=== PATIENT | male | born 1995 | race Caucasian/White ===

== ENCOUNTER 2018-10-21 15:06 | Outpatient (CLI) | payer MEDICARE, MEDICAID, SELFPAY ==
[2018-10-24 17:27] LABS: Testosterone, Total 192 ng/dL (240-950)
== END 2018-10-21 15:26 ==
PROVIDERS: PCP Internal Medicine; Visit Provider Internal Medicine
DX: L65.9 Nonscarring hair loss, unspecified (principal)
CPT/HCPCS: 36415; 84403; 84443

== ENCOUNTER 2018-11-02 09:51 | Outpatient (CLI) | payer MEDICARE, MEDICAID, SELFPAY ==
[2018-11-03 09:18] LABS: FSH 1.8 mIU/ml (1.4-18.1)
[2018-11-05 15:20] LABS: Testosterone, Free 12.5 ng/dL (5.05-19.8); Testosterone, Total 328 ng/dL (240-950)
== END 2018-11-02 10:11 ==
PROVIDERS: PCP Internal Medicine; Visit Provider Internal Medicine
DX: R79.89 Other specified abnormal findings of blood chemistry (principal)
CPT/HCPCS: 36415; 84402; 84403; 83001; 83002

== ENCOUNTER 2021-04-29 15:21 | Emergency (ER) | payer MEDICARE, MEDICAID, SELFPAY ==
[2021-04-29 15:29] VITALS: BP 141/77; PULSE 86; TEMP 36.8; O2SAT 97
--- NOTE | 2021-04-29 15:40 | W.ED.GENAD ---
Discharge Plan Disposition Patient Disposition: HOME Condition: Stable Discharge Details Clinical Impression: Bilateral edema of lower extremity Primary Care Provider: Jennifer Mcfarland ED Provider: Kyaw Kline Home Meds and New Rx's Prescriptions: Continued multivitamin tablet 1 tab PO DAILY RF: 0 Discharge Instructions Instructions: Edema (ED) Additional Instructions: Laboratory values do not reveal any obvious emergent process. As we discussed, elevate your lower extremities, wear compression stockings, limit your sodium intake, and watch her overall fluid intake. Please watch for new or worsening symptoms and return to the ER for any concerns. Otherwise I recommend reaching out your primary care provider tomorrow to discuss your ongoing symptoms, ER visit, and need for outpatient reevaluation. Medical Decision Making <ROBEL Gillis - Last Filed: 04/29/21 17:02> Patient is a pleasant 25 year old male with PMH significant for depression, WPW, obesity, Asperger's, presenting with c/c of BLE edema. States that he noted significant edema when he woke yesterday. Has had episodes of swelling in the past but never to this degree. He reports that today, swelling is improved today. Denies trauma, pain, SOB, CP, rash, fevers/chills. States that the night before he had a large amount of salt. No recent medication changes. On exam, patient appears anxious but non toxic. He has small amount of non pitting BLE edema to ankles. 2+ distal pulses. Sensation intact. No rash. Calves are soft, nontender. Wells' Score for DVT zero. We discussed treatment options. Patient is very anxious. I have low suspicion, based on exam, age and history, for emergent pathology. However, will screen for nephrotic syndrome, acute heart failure with labs. At the end of my shift, care transitioned to Kyaw Kline PA-C with labs pending. <ROBEL Valenzuela - Last Filed: 04/29/21 17:55> I received care of this 25-year-old gentleman from my colleague ROBEL Bailey, please see her initial HPI and examination. Laboratory values pending. CBC unremarkable, electrolytes unremarkable, BUN 15 creatinine 1.1 GFR greater than 60. Albumin 4.4, urinalysis unremarkable. Upon reevaluation patient appears well, nontoxic, speaking in full sentences. Heart regular rate and rhythm, lungs clear to auscultation. Bilateral lower extremities, feet with minimal pedal edema. Calves are nontender without obvious swelling, erythema, warmth. Normal dorsalis pedal pulse and capillary refill bilaterally. Negative Homans' sign bilaterally. Discussed work-up with patient, discussed elevation, stockings, decreasing his sodium intake, and watching his fluid intake. Standard discharge and return precautions given. Otherwise patient will reach out to his primary care provider tomorrow to discuss his ER visit need for outpatient reevaluation. Lab Data Lab results reviewed: Yes I reviewed the patient's lab results. Labs: Laboratory Tests Range/Units 04/29/21 04/29/21 04/29/21 16:03 16:20 16:20 WBC (4.4-10.8) 10^3/uL 8.18 RBC (4.36-5.78) 10^6/uL 5.17 Hgb (13.5-17.5) g/dL 14.3 Hct (40.0-50.0) % 44.2 MCV (80-95) fL 85.5 MCH (27.0-33.0) pg 27.7 MCHC (32.0-36.0) % 32.4 RDW (11.8-14.1) % 12.9 Plt Count (130-400) 10^3/uL 311 MPV (8.0-11.0) fL 10.7 Immature Gran % 0.4 Neutrophils % 67.7 Lymphocytes % 22.7 Monocytes % 6.6 Eosinophils % 2.2 Basophils % 0.4 Nucleated RBC % % 0 Absolute Neutrophils (1.2-6.7) 10^3/uL 5.54 Absolute Lymphocytes (1.2-3.4) 10^3/uL 1.86 Absolute Monocytes (0.1-0.8) 10^3/uL 0.54 Absolute Eosinophils (0.0-0.7) 10^3/uL 0.18 Absolute Basophils (0.0-0.2) 10^3/uL 0.03 Sodium (136-145) mmol/L 140 Potassium (3.5-5.1) mmol/L 4.1 Chloride (98-107) mmol/L 103 Carbon Dioxide (21.0-32.0) mmol/L 28.4 Anion Gap (3-11) mmol/L 8.6 BUN (7-18) mg/dL 15 Creatinine (0.70-1.30) mg/dL 1.1 Estimated GFR/1.73 m2 (mL/min/1.73m2) >= 60.00 Glucose (74-106) mg/dL 111 H Calcium (8.5-10.1) mg/dL 9.2 Total Bilirubin (0.2-1.0) mg/dL 0.4 AST (15-37) U/L 22 ALT (16-63) U/L 46 Alkaline Phosphatase (46-116) U/L 117 H NT-Pro-B Natriuret Pep (<300) pg/mL 50 Total Protein (6.4-8.2) g/dL 8.2 Albumin (3.4-5.0) g/dL 4.4 Urine Color (Yellow) Yellow Urine Clarity (Clear) Clear Urine pH (5-8) 8.0 Ur Specific [place] (1.005-1.025) 1.020 Urine Protein (Negative) mg/dL Negative Urine Ketones (Negative) mg/dL Negative Urine Blood (Negative) Negative Urine Nitrite (Negative) Negative Urine Bilirubin (Negative) Negative Urine Urobilinogen (Up TO 0.2) EU/dL 0.2 Ur Leukocyte Esterase (Negative) Negative Urine Glucose (Negative) mg/dL Negative HPI <ROBEL Gillis - Last Filed: 04/29/21 17:02> General Mode of arrival: ambulatory. Date/Time Provider Initiated Documentation: 04/29/21 15:25. Limitations to Documentation: no limitations. Information obtained by: patient, RN notes reviewed and old records reviewed. History of Present Illness 25 year old M presents to the emergency department with the chief complaint of bilateral ankle swelling, described as moderate and similar to prior episodes, Quality is described as other (denies any pain), and is localized to the left, right and lower extremity. Patient reports no radiation. Patient started experiencing this day(s) (first noted yesterday AM) and it has been constant (signifcantly improved). other things that improve symptom(s), (elevation) No exacerbating factors reported . Patient notes no other symptoms.. Patient did receive the following treatments prior to arrival, none Related Data Home Medications Medication Instructions Recorded Confirmed multivitamin 1 tab PO DAILY 02/02/19 04/29/21 Allergies Allergy/AdvReac Type Severity Reaction Status Date / Time No Known Drug Allergies Allergy Verified 04/29/21 15:36 General Stated Complaint: GenMedical YENIFER: 5 Review of Systems <ROBEL Gillis - Last Filed: 04/29/21 17:02> Constitutional Constitutional: Reports as per HPI, Denies chills, Denies fever(s), Denies headache(s) and Denies weakness ENT Ears, Nose, Mouth, and Throat: Denies headache(s) Cardiovascular Cardiovascular: Reports as per HPI, Denies dyspnea and Denies dyspnea on exertion Respiratory Respiratory: Reports as per HPI, Denies dyspnea and Denies dyspnea on exertion Musculoskeletal Musculoskeletal: Reports as per HPI and Denies tingling Integumentary/Breasts Skin/Breast: Reports as per HPI, Denies rash and Denies wounds Neurologic Neurologic: Reports as per HPI, Denies headache(s), Denies tingling, Denies paresthesias and Denies weakness PFSH <ROBEL Gillis - Last Filed: 04/29/21 17:02> Medical History BMI 40.0-44.9, adult (10/08/16) Depression (12/30/11) Intentional Tylenol overdose 2014 Surgical History Recurrent major depression in partial remission Family History (Updated 04/28/19 @ 15:14 by Prachi Clarke RN) Mother Essential hypertension Asthma Diabetes Aunt Diabetes Heart disease Asthma Aunt Asthma Maternal Grandmother Heart disease Social History Smoking/Tobacco Use Status: Never Smoking risk assessment performed?: Yes Alcohol Intake: never Drug use: Never Substance use type: does not use Adopted: No Foster care: Yes (as a child) Household members: other Details: sister and mom Housing: apartment Number of Children: 0 Frequency: 1-2 times per week Do you feel safe at home: Yes Do you feel safe in your relationship?: Yes Exam <ROBEL Gillis - Last Filed: 04/29/21 17:02> Const General: cooperative, healthy appearing, comfortable, no acute distress, well developed, well groomed and anxious Nutritional Appearance: well nourished and obese Orientation: alert and awake Resp Effort & Inspection: normal respiratory effort, able to speak in complete sentences and no respiratory distress Auscultation: clear to auscultation bilaterally Cardio Rate: regular rate Rhythm: regular rhythm Heart Sounds: S1 normal and S2 normal Skin General skin exam: no rashes or lesions noted Lesions: no lesions Rashes: no rashes Trauma: no lacerations or abrasions Neuro General: patient alert and patient awake Cognition: normal cognition Speech: speech normal Gait: normal gait Motor: muscle tone normal throughout Sensory Exam: no sensory deficits noted Extrem General: full ROM, capillary refill normal, no calf tenderness, normal gait, edema (mild nonpitting edema) Laterality: bilateral and other (2+ distal pulses) Psych Appearance: grossly normal and well kempt Mental Status: mental status grossly normal Speech and Movement: speech and movement normal Course <ROBEL Gillis - Last Filed: 04/29/21 17:02> Vital Signs Vital signs: Vital Signs Temperature 36.8 C 04/29/21 15:29 Pulse 86 04/29/21 15:29 Blood Pressure 141/77 H 04/29/21 15:29 Pulse Oximetry 97 04/29/21 15:29 Temperature 36.8 C 04/29/21 15:29 Temperature Source Temporal Artery Scan 04/29/21 15:29 Pulse 86 04/29/21 15:29 Respiratory Effort Non-Labored 04/29/21 15:33 Blood Pressure 141/77 H 04/29/21 15:29 Blood Pressure Position Sitting 04/29/21 15:29 Pulse Oximetry 97 04/29/21 15:29 Oxygen Delivery Method Room Air 04/29/21 15:29 Oxygen Flow Rate 0 04/29/21 15:29 Pain Level 0 04/29/21 15:29 Sign Out <ROBEL Gillis - Last Filed: 04/29/21 17:02> Sign Out Data: Sign Out Comment: Care transitioned to Kyaw Kline PA-C with labs pending. BLE swelling. Began yesterday, improving. Last updated by Katharine Bailey PA at 04/29/21 16:11
[2021-04-29 16:10] LABS: Bilirubin Negative (Negative); Blood Negative (Negative); Clarity Clear (Clear); Glucose Negative (Negative); Ketones Negative (Negative); Leukocyte Esterase Negative (Negative); Nitrite Negative (Negative); Urobilinogen 0.2 EU/dL (Up TO 0.2)
[2021-04-29 16:33] LABS: Abs Immature Grans 0.03 10^3/uL (0.0-0.06); Absolute Basophil Count 0.03 10^3/uL (0.0-0.2); Absolute Eosinophil Count 0.18 10^3/uL (0.0-0.7); Absolute Lymphocyte Count 1.86 10^3/uL (1.2-3.4); Absolute Monocyte Count 0.54 10^3/uL (0.1-0.8); Absolute Neutrophil Count 5.54 10^3/uL (1.2-6.7); Basophils % 0.4; Eosinophils % 2.2; HCT 44.2 % (40.0-50.0); HGB 14.3 g/dL (13.5-17.5); Immature Grans % 0.4; Lymphocytes % 22.7; MCH 27.7 pg (27.0-33.0); MCHC 32.4 % (32.0-36.0); MCV 85.5 fL (80-95); MPV 10.7 fL (8.0-11.0); Monocytes % 6.6; Neutrophils % 67.7; Nucleated RBC 0 %; Platelet Count 311 10^3/uL (130-400); RBC 5.17 10^6/uL (4.36-5.78); RDW 12.9 % (11.8-14.1); RDW-SD 40.3 fL; WBC 8.18 10^3/uL (4.4-10.8)
[2021-04-29 16:57] LABS: ALT 46 U/L (16-63); AST 22 U/L (15-37); Albumin 4.4 g/dL (3.4-5.0); Alkaline Phosphatase 117 U/L (46-116); Anion Gap 8.6 mmol/L (3-11); BUN 15 mg/dL (7-18); Bilirubin, Total 0.4 mg/dL (0.2-1.0); CO2 28.4 mmol/L (21.0-32.0); CREATININE 1.1 mg/dL (0.70-1.30); Calcium 9.2 mg/dL (8.5-10.1); Chloride 103 mmol/L (98-107); Glucose 111 mg/dL (74-106); NT-proBNP 50 pg/mL (<300); Potassium 4.1 mmol/L (3.5-5.1); Sodium 140 mmol/L (136-145); Total Protein 8.2 g/dL (6.4-8.2)
[2021-04-29 18:08] VITALS: BP 113/72; PULSE 72; RESP 16; TEMP 36.4; O2SAT 99
== END 2021-04-29 18:10 | disposition home or self-care (01) ==
PROVIDERS: Physician Assistant; Emergency Provider Physician Assistant; PCP Internal Medicine
DX: R60.0 Localized edema (principal)
CPT/HCPCS: 36415; 80053; 99283; 81003; 83880; 85025

== ENCOUNTER 2021-11-02 01:21 | Outpatient (CLI) | payer MEDICARE, MEDICAID, SELFPAY ==
[2021-11-02] MEDS: Albuterol HFA 18 GM 200 PUFF INH IH (16:59)
[2021-11-02] MEDS: Inhaler, Assist Device 1 EACH MC (16:59)
== END 2021-11-02 01:22 | disposition home or self-care (01) ==
LOC: RT 01:21
PROVIDERS: PCP Internal Medicine; Visit Provider Internal Medicine
DX: R06.2 Wheezing (principal); J98.4 Other disorders of lung; E66.9 Obesity, unspecified
CPT/HCPCS: 94060; 94726; 94729

== ENCOUNTER 2023-04-08 12:43 | Outpatient (CLI) | payer MEDICARE, MEDICAID, SELFPAY ==
[2023-04-08 12:34] LABS: Abs Immature Grans 0.03 10^3/uL (0.0-0.06); Absolute Basophil Count 0.04 10^3/uL (0.0-0.2); Absolute Eosinophil Count 0.17 10^3/uL (0.0-0.7); Absolute Lymphocyte Count 2.13 10^3/uL (1.2-3.4); Absolute Monocyte Count 0.54 10^3/uL (0.1-0.8); Basophils % 0.4; Eosinophils % 1.9; HCT 43.1 % (40.0-50.0); HGB 14.1 g/dL (13.5-17.5); Immature Grans % 0.3; Lymphocytes % 23.6; MCH 27.9 pg (27.0-33.0); MCHC 32.7 % (32.0-36.0); MCV 85 fL (80-95); MPV 10.5 fL (8.0-11.0); Neutrophils % 67.8; Platelet Count 301 10^3/uL (130-400); RBC 5.06 10^6/uL (4.36-5.78); RDW 13.7 % (11.8-14.1); RDW-SD 42.5 fL; WBC 9.01 10^3/uL (4.4-10.8)
[2023-04-08 13:09] LABS: Mono Screening Negative (Negative)
[2023-05-07 09:48] LABS: Fungus Smear No Fungi Seen
== END 2023-04-08 12:44 | disposition home or self-care (01) ==
LOC: LBO 12:45
PROVIDERS: PCP Family Medicine; Visit Provider Family Medicine
DX: J06.9 Acute upper respiratory infection, unspecified (principal)
CPT/HCPCS: 36415; 87102; 87206; 85025; 86308; 87798

== ENCOUNTER → 2023-04-14 02:09 | Outpatient (CLI) | payer MEDICARE, MEDICAID, SELFPAY ==
--- NOTE | 2023-04-14 08:00 | DI.RAD_ITS ---
Exam(s) XR CHEST 2V PA LATERAL EXAM: XR CHEST 2V PA LATERAL CLINICAL HISTORY: Cough, possible mold exposure,uri,j06.9. TECHNIQUE: 2D digital imaging was performed. COMPARISON: No exams were available for comparison FINDINGS: 2 views: Heart size is normal. The mediastinum is not widened. Lungs are clear. No infiltrates nor pleural effusions. IMPRESSION: No acute pulmonary findings. DATA REPOSITORY: RADIATION DOSE DELIVERED:
== END ==
PROVIDERS: PCP Family Medicine; Visit Provider Family Medicine
DX: J06.9 Acute upper respiratory infection, unspecified (principal)
CPT/HCPCS: 71046

== ENCOUNTER 2023-06-25 19:21 | Emergency (ER) | payer MEDICARE, MEDICAID, SELFPAY ==
[2023-06-25 19:36] VITALS: BP 108/88; PULSE 91; RESP 20; TEMP 36.5; O2SAT 99
[2023-06-25] MEDS: Fluorescein STRIPS 100/BOX 1 MG (20:08)
--- NOTE | 2023-06-25 20:08 | ED.GENADUL_ITS ---
Discharge Plan Disposition Patient Disposition: Home Condition: Good Discharge Details Clinical Impression: Conjunctivitis, viral Primary Care Provider: Arnie Lovelace ED Provider: Suki Hennessy Home Meds and New Rx's Prescriptions: No Action ibuprofen 200 mg capsule 400 mg PO Q6H PRN (Reason: Headache pain) multivitamin Tablet 1 tab PO QAM calcium carbonate [Tums] 200 mg calcium (500 mg) tablet,chewable 200 mg PO TID PRN omeprazole 20 mg capsule,delayed release(DR/EC) 20 mg PO DAILY Qty: 60 0RF Discharge Instructions Instructions: Conjunctivitis (ED) Additional Instructions: Benadryl over the counter as well as ketotifen eye drops as needed for symptoms; follow the directions on the bottles. Return to the emergency department for new or worsneing symptoms including vision change, thick discharge from the eye, eye pain, or if you have any other concersn. Referrals: Arnie Lovelace DO [Primary Care Provider] - Discharge Data Discharge Date/Time-TO BE ENTERED AT DEPARTURE: 06/25/23 20:35 Medical Decision Making 27yo male presenting with left eye redness and pruritus x 3 days. History from patient and mother at bedside. No eye trauma. No history concerning for glaucoma. Vital signs reassuring, on exam is left eye is mildly injected with watery discharge, consistent with viral vs allergic conjunctivitis. Unlikely bacterial. Examined with conn lamp, no corneal abrasion. Given Benadryl here, advised Benadryl and OTC eye drops at home. Discharged home; discharge instructions including return precautions were reviewed with patient who verbalized understanding. All questions were answered and they are in full agreement with the plan. HPI General Mode of arrival: ambulatory . Date/Time Provider Initiated Documentation: 06/25/23 19:47 . Limitations to Documentation: no limitations . Information obtained by: patient and family . HPI Narrative: 27yo male presenting with left eye redness and pruritus x 3 days. History from patient and mother at bedside. He does not recall any trauma to the area. No vision changes. Symptoms have been worsening over time, get worse after he rubs his eye. Watery discharge, no thick discharge. Edwar eye pain. No history of eye problems. No URI symptoms. He is otherwise in his usual state of health. Related Data Home Medications Medication Instructions Recorded Confirmed calcium carbonate 200 mg calcium 200 mg PO TID PRN 04/08/23 06/25/23 (500 mg) chewable tablet (Tums) ibuprofen 200 mg capsule 400 mg PO Q6H PRN Headache pain 04/08/23 06/25/23 multivitamin 1 tab PO QAM 04/08/23 06/25/23 omeprazole 20 mg capsule,delayed 20 mg PO DAILY #60 caps 04/08/23 06/25/23 release Previous Rx's Medication Instructions Recorded omeprazole 20 mg capsule,delayed 20 mg PO DAILY #60 caps 04/08/23 release Allergies Allergy/AdvReac Type Severity Reaction Status Date / Time cat dander Allergy Intermediate Unverified 06/25/23 19:40 No Known Drug Allergies Allergy Verified 06/25/23 19:40 General Stated Complaint: EyeProblem YENIFER: 4 Review of Systems Narrative: see HPI PFSH All Active Problems (Updated 06/25/23 @ 20:17 by Suki Hennessy MD) Conjunctivitis, viral (Acute) Reversed sleep wake cycle (Acute) Body mass index (BMI) of greater than 35 to 39.9 with comorbidity (Chronic) Asperger's syndrome (Acute 10/26/14) Restrictive lung disease secondary to obesity (Chronic) PFT 10/2021 Bilateral edema of lower extremity (Acute) Disrupted sleep-wake cycle (Acute) Oppositional defiant disorder (Acute 12/30/11) Hair loss (Acute) Gynecomastia (Acute 11/08/14) Acanthosis nigricans (Acute 11/08/14) Medical History (Updated 06/25/23 @ 20:17 by Suki Hennessy MD) Olltx-[id number]-Tpxqw (WPW) pattern (93) Depression (12/30/11) Intentional Tylenol overdose 2014 BMI 40.0-44.9, adult (10/08/16) Surgical History (Updated 11/07/21 @ 08:44 by Jennifer Mcfarland MD) 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 Family History (Updated 04/28/19 @ 15:14 by Prachi Clarke RN) Mother Essential hypertension Asthma Diabetes Aunt Diabetes Heart disease Asthma Aunt Asthma Maternal Grandmother Heart disease Social History Smoking/Tobacco Use Status: Never Smoking risk assessment performed?: Yes Alcohol Intake: never Drug use: Never Substance use type: does not use Adopted: No Foster care: Yes (as a child) Household members: other Details: sister and mom Housing: apartment Number of Children: 0 Frequency: 1-2 times per week Do you feel safe at home: Yes Do you feel safe in your relationship?: Yes Exam Narrative Exam Narrative: General: Alert, well appearing, well nourished, in no acute distress. Head: Normocephalic, atraumatic Neck: Trachea midline, Neck supple. Cardiac: No cyanosis. Resp: No respiratory distress. Speaking in full sentences. Abd: Non-distended Extremities: No deformities. No peripheral edema. Neurologic: GCS 15. Moves all extremities freely against gravity Detailed Eye Eye: PERRL EOM full and pain free. Visual najera intact to confrontation bilaterally R: VA- 20/20 Lids/lashes- nml Conjuctiva-white L: VA- 20/25 Lids/lashes- nml Conjuctiva-injected No fluorsceine uptake. Course Vital Signs Vital signs: Vital Signs Temperature 36.5 C 06/25/23 19:36 Pulse 91 H 06/25/23 19:36 Respiratory Rate 20 06/25/23 19:36 Blood Pressure 108/88 06/25/23 19:36 Pulse Oximetry 99 06/25/23 19:36 Temperature 36.5 C 06/25/23 19:36 Pulse 91 H 06/25/23 19:36 Respiratory Rate 20 06/25/23 19:36 Respiratory Effort Normal 06/25/23 19:41 Blood Pressure 108/88 06/25/23 19:36 Blood Pressure Position Sitting 06/25/23 19:36 Pulse Oximetry 99 06/25/23 19:36 Oxygen Delivery Method Room Air 06/25/23 19:36 Oxygen Flow Rate 0 06/25/23 19:36
[2023-06-25] MEDS: diphenhydrAMINE 25 MG CAP 50 MG PO (20:18)
== END 2023-06-25 20:35 | disposition home or self-care (01) ==
PROVIDERS: Emergency Provider Student in an Organized Health Care Education/Training Program; PCP Family Medicine
DX: B30.9 Viral conjunctivitis, unspecified
CPT/HCPCS: 99283

== ENCOUNTER 2023-10-13 04:21 | Outpatient (CLI) | payer MEDICARE, MEDICAID, SELFPAY ==
[2023-10-13 11:34] LABS: Anion Gap 9.5 mmol/L (3-11); BUN 19 mg/dL (7-18); CO2 27.5 mmol/L (21.0-32.0); Calcium 9.2 mg/dL (8.5-10.1); Calculated LDL 109 mg/dL (<100); Chloride 106 mmol/L (98-107); Cholesterol 171 mg/dL (<200); Estimated GFR 104.48 (mL/min/1.73m2); Glucose 111 mg/dL (74-106); HDL Cholesterol 34 mg/dL (40-60); Potassium 3.8 mmol/L (3.5-5.1); Sodium 143 mmol/L (136-145); TSH (W/Ref FT4) 2.11 uIU/mL (0.36-3.74); Triglyceride 140 mg/dL (<150)
== END 2023-10-13 04:22 | disposition home or self-care (01) ==
LOC: LBO 04:21
PROVIDERS: PCP Family Medicine; Referring Provider Student in an Organized Health Care Education/Training Program; Visit Provider Student in an Organized Health Care Education/Training Program
DX: Z13.220 Encounter for screening for lipoid disorders (principal); Z13.1 Encounter for screening for diabetes mellitus; Z91.89 Other specified personal risk factors, not elsewhere classified; R53.83 Other fatigue
CPT/HCPCS: 36415; 80048; 80061; 84443

== ENCOUNTER → 2024-02-19 15:44 | Outpatient (CLI) | payer MEDICARE, MEDICAID, SELFPAY ==
--- NOTE | 2024-02-19 15:17 | DI.RAD_ITS ---
Exam(s) XR CHEST 2V PA LATERAL EXAM: XR CHEST 2V PA LATERAL CLINICAL HISTORY: Cough x2 months, J06.9 TECHNIQUE: 2D digital imaging was performed. Two views. COMPARISON: CR XR CHEST 2V PA LATERAL from 04/14/2023 FINDINGS: HEART: Normal size. Aorta: Not dilated. PULMONARY VASCULATURE: Normal. LUNGS: Clear. PLEURAL SPACE: No pleural effusion or pneumothorax. BONE:Unremarkable for age. Soft tissues: Unremarkable. IMPRESSION: No acute abnormality. DATA REPOSITORY: RADIATION DOSE DELIVERED:
== END ==
PROVIDERS: PCP Family Medicine; Visit Provider Family Medicine
DX: J06.9 Acute upper respiratory infection, unspecified (principal)
CPT/HCPCS: 36415; 71046; 85025; 86308

== ENCOUNTER 2024-02-19 15:53 | Outpatient (CLI) | payer MEDICARE, MEDICAID, SELFPAY ==
[2024-02-19 15:38] LABS: Abs Immature Grans 0.03 10^3/uL (0.0-0.06); Absolute Basophil Count 0.03 10^3/uL (0.0-0.2); Absolute Eosinophil Count 0.35 10^3/uL (0.0-0.7); Absolute Lymphocyte Count 2.38 10^3/uL (1.2-3.4); Absolute Monocyte Count 0.71 10^3/uL (0.1-0.8); Absolute Neutrophil Count 5.98 10^3/uL (1.2-6.7); Basophils % 0.3 %; Eosinophils % 3.7 %; HCT 40.6 % (40.0-50.0); HGB 13.3 g/dL (13.5-17.5); Immature Grans % 0.3 %; Lymphocytes % 25.1 %; MCH 27.5 pg (27.0-33.0); MCHC 32.8 % (32.0-36.0); MCV 84 fL (80-95); MPV 10.9 fL (8.0-11.0); Monocytes % 7.5 %; Neutrophils % 63.1 %; Platelet Count 349 10^3/uL (130-400); RBC 4.84 10^6/uL (4.36-5.78); RDW 13.3 % (11.8-14.1); RDW-SD 41.1 fL; WBC 9.48 10^3/uL (4.4-10.8)
[2024-02-19 15:46] LABS: Mono Screening Negative (Negative)
== END 2024-02-19 15:54 | disposition home or self-care (01) ==
LOC: LBO 15:54
PROVIDERS: PCP Family Medicine; Visit Provider Family Medicine
DX: J06.9 Acute upper respiratory infection, unspecified (principal)
CPT/HCPCS: 36415; 85025; 86308

== ENCOUNTER 2024-08-28 09:42 | Emergency (ER) | payer MEDICARE, MEDICAID, SELFPAY ==
[2024-08-28 09:44] VITALS: BP 145/78; PULSE 90; RESP 18; TEMP 36.8; O2SAT 96
--- NOTE | 2024-08-28 09:57 | W.ED.GENAD ---
Discharge Plan Disposition Patient Disposition: Home Condition: Stable Discharge Details Clinical Impression: Carbon monoxide exposure Primary Care Provider: Arnie Lovelace ED Provider: Neil Aiken Home Meds and New Rx's Prescriptions: Continued ibuprofen 200 mg capsule 400 mg PO Q6H PRN (Reason: Headache pain) multivitamin Tablet 1 tab PO QAM calcium carbonate [Tums] 200 mg calcium (500 mg) tablet,chewable 200 mg PO TID PRN fluticasone propionate 50 mcg/actuation spray,suspension 2 spray intranasal DAILY PRN (Reason: congestion) Qty: 16 2RF Rx Instructions: administer into each nostril fluticasone propion-salmeterol 250-50 mcg/dose blister with device 1 inh inhalation BID Qty: 60 2RF Discharge Instructions Instructions: Carbon monoxide (CO) poisoning Additional Instructions: Please do not return to your house until deemed safe by your gas company. Please contact your primary care physician to arrange follow-up. Return to the ER immediately for any worsening or new concerning symptoms. Referrals: Arnie Lovelace DO [Primary Care Provider] - Discharge Data Discharge Date/Time-TO BE ENTERED AT DEPARTURE: 08/28/24 10:46 HPI General Mode of arrival: EMS. Date/Time Provider Initiated Documentation: 08/28/24 09:43. Limitations to Documentation: no limitations. Information obtained by: EMS. HPI Narrative: 28yo male here here with concern for carbon monoxide poisoning. Patient was in his home today and feeling fatigued over the past day. His mother smelled gas and noticed that her recently filled tank was empty. She contacted fire department who arrived and noted concern for elevated carbon monoxide in the household. Patient notes he has mild headache and fatigue today. He went to bed earlier than usual yesterday. Related Data Home Medications ?Medication ?Instructions ?Recorded ?Confirmed calcium carbonate (Tums) 200 mg PO TID PRN 04/08/23 07/12/24 ibuprofen 200 mg capsule 400 mg PO Q6H PRN Headache pain 04/08/23 07/12/24 multivitamin 1 tab PO QAM 04/08/23 07/12/24 fluticasone propionate 50 2 spray intranasal DAILY PRN 08/21/23 07/12/24 mcg/actuation nasal congestion #16 grams spray,suspension fluticasone 250 mcg-salmeterol 50 1 inh inhalation BID #60 ea 01/27/24 07/12/24 mcg/dose blistr powdr for inhalation Previous Rx's ?Medication ?Instructions ?Recorded fluticasone propionate 50 2 spray intranasal DAILY PRN 08/21/23 mcg/actuation nasal congestion #16 grams spray,suspension fluticasone 250 mcg-salmeterol 50 1 inh inhalation BID #60 ea 01/27/24 mcg/dose blistr powdr for inhalation Allergies Allergy/AdvReac Type Severity Reaction Status Date / Time cat dander Allergy Intermediate itching/eye Unverified 07/12/24 14:32 s/nose pollen extracts Allergy Intermediate Nasal Verified 07/12/24 14:32 congestion; watery, itchy eyes No Known Drug Allergies Allergy Other (See Verified 07/12/24 14:32 Comment) General Stated Complaint: OD/Poison YENIFER: 3 Review of Systems All systems reviewed & are unremarkable except as noted in HPI and below Constitutional Constitutional: Denies fever(s) Cardiovascular Cardiovascular: Denies chest pain and Denies dyspnea Respiratory Respiratory: Denies dyspnea Exam Const General: cooperative and no acute distress HENRI Mouth: moist mucous membranes Eyes Conjunctivae: normal conjunctivae Sclera: normal sclerae Neck Neck: trachea midline and supple Resp Auscultation: clear to auscultation bilaterally, no rales, no rhonchi and no wheezes Cardio Rate: regular rate and not tachycardic Rhythm: regular rhythm GI Palpation: soft, not firm, no guarding, no masses, not rigid and nontender Skin General skin exam: no rashes or lesions noted Neuro General: patient alert, patient awake and tone normal Extrem General: no edema Psych Appearance: grossly normal Mental Status: mental status grossly normal Course Vital Signs Vital signs: Vital Signs Temperature 36.8 C 08/28/24 09:44 Pulse 90 08/28/24 09:44 Respiratory Rate 18 08/28/24 09:44 Blood Pressure 145/78 H 08/28/24 09:44 Pulse Oximetry 96 08/28/24 09:44 Temperature 36.8 C 08/28/24 09:44 Pulse 90 08/28/24 09:44 Respiratory Rate 18 08/28/24 09:44 Blood Pressure 145/78 H 08/28/24 09:44 Pulse Oximetry 96 08/28/24 09:44 Oxygen Delivery Method Room Air 08/28/24 09:44 Oxygen Flow Rate 0 08/28/24 09:44 Medical Decision Making 1000 -- 28yo male here with concern for carbon monoxide poisoning. Patient is mentating well. He does have mild headache. Will apply oxygen and check carbon monoxide level. 1028 --carboxyhemoglobin 1.7%. Plan for discharge with specific instructions to not return to home until deemed safe by a gas company. Lab Data Lab results reviewed: Yes I reviewed the patient's lab results. Labs: Laboratory Tests Range/Units 08/28/24 10:01 WBC (4.4-10.8) 10^3/uL 8.23 RBC (4.36-5.78) 10^6/uL 5.02 Hgb (13.5-17.5) g/dL 13.9 Hct (40.0-50.0) % 42.9 MCV (80-95) fL 86 MCH (27.0-33.0) pg 27.7 MCHC (32.0-36.0) % 32.4 RDW (11.8-14.1) % 13.3 Plt Count (130-400) 10^3/uL 281 MPV (8.0-11.0) fL 10.2 Immature Gran % % 0.2 Neutrophils % % 61.9 Lymphocytes % % 26.2 Monocytes % % 7.3 Eosinophils % % 3.9 Basophils % % 0.5 Nucleated RBC % (0.0-0.3) % 0.0 Absolute Neutrophils (1.2-6.7) 10^3/uL 5.09 Absolute Lymphocytes (1.2-3.4) 10^3/uL 2.16 Absolute Monocytes (0.1-0.8) 10^3/uL 0.60 Absolute Eosinophils (0.0-0.7) 10^3/uL 0.32 Absolute Basophils (0.0-0.2) 10^3/uL 0.04 Carboxyhemoglobin % % 1.7 Sodium (136-145) mmol/L 141 Potassium (3.5-5.1) mmol/L 3.8 Chloride (98-107) mmol/L 105 Carbon Dioxide (21.0-32.0) mmol/L 29.2 Anion Gap (3-11) mmol/L 6.8 BUN (7-18) mg/dL 14 Creatinine (0.70-1.30) mg/dL 1.1 Est GFR (CKD-EPI 2020) (mL/min/1.73m2) 92.61 Glucose (74-106) mg/dL 105 Calcium (8.5-10.1) mg/dL 8.6 Total Bilirubin (0.2-1.0) mg/dL 0.31 AST (15-37) U/L 18 ALT (16-63) U/L 36 Alkaline Phosphatase (46-116) U/L 141 H Total Protein (6.4-8.2) g/dL 7.3 Albumin (3.4-5.0) g/dL 3.5 Quality:SDOH Health Related Social Needs: Health related social needs inadequate housing(Z59.1) Health related social needs details Noted PFSH All Active Problems (Updated 08/28/24 @ 10:29 by Neil Aiken MD) Carbon monoxide exposure (Acute) Asthma (Chronic) Obesity (Chronic) Cold sore (Acute) resolving, uses chapstick .. prob HSV (may need viral/top in future) Nasal ulcer (Acute) Reversed sleep wake cycle (Acute) Body mass index (BMI) of greater than 35 to 39.9 with comorbidity (Chronic) Asperger's syndrome (Acute 10/26/14) Restrictive lung disease secondary to obesity (Chronic) PFT 10/2021 Bilateral edema of lower extremity (Acute) Disrupted sleep-wake cycle (Acute) Oppositional defiant disorder (Acute 12/30/11) Hair loss (Acute) Gynecomastia (Acute 11/08/14) Acanthosis nigricans (Acute 11/08/14) Medical History Qidbd-Qarnvjkha-Uhiwb (WPW) pattern (93) Depression (12/30/11) Intentional Tylenol overdose 2015 BMI 40.0-44.9, adult (10/08/16) Surgical History 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 Family History Mother Essential hypertension Asthma Diabetes Aunt Diabetes Heart disease Asthma Aunt Asthma Maternal Grandmother Heart disease Social History Smoking/Tobacco Use Status: Never Second Hand Exposure: No Smoking risk assessment performed?: Yes Alcohol Intake: current Drug use: Never Substance use type: does not use Adopted: No Caregiver/Support person: No Foster care: No Household members: family Housing: apartment Number of Children: 0 number of grandchildren: 0 Communication Needs: None Education Level: high school Do you need help understanding health information?: Rarely current occupation: Disabled Pets and animals: Yes (1) Pets and animals: cat(s) Sexually active: No Do you think of yourself as: bisexual Current gender identity: male What is your relationship status?: never How often do you talk on the phone with friends or family?: three or more times per week How often do you get together with friends or relatives?: three or more times per week Do you belong to any clubs or organized social groups?: no Panel score (0-1 are the most socially isolated patients): 1 What type of physical activity do you participate in: none Duration: < 15 minutes/day Frequency: 1-2 times per week Judy/Mosque: None Special judy needs: No Seatbelt use: always Helmet use: No (Never) Drive intox or ride w/intox motor coach bus driver: No (Not to my knowledge) Do you feel safe at home: Yes Do you feel safe in your relationship?: Yes
[2024-08-28 10:01] VITALS: RESP 16
[2024-08-28 10:04] VITALS: O2SAT 97
[2024-08-28 10:08] LABS: Carboxyhemoglobin 1.7 %
[2024-08-28 10:10] VITALS: BP 130/73; PULSE 76; O2SAT 99
[2024-08-28 10:11] LABS: Abs Immature Grans 0.02 10^3/uL (0.0-0.06); Absolute Basophil Count 0.04 10^3/uL (0.0-0.2); Absolute Eosinophil Count 0.32 10^3/uL (0.0-0.7); Absolute Lymphocyte Count 2.16 10^3/uL (1.2-3.4); Absolute Neutrophil Count 5.09 10^3/uL (1.2-6.7); Basophils % 0.5 %; Eosinophils % 3.9 %; HCT 42.9 % (40.0-50.0); HGB 13.9 g/dL (13.5-17.5); Immature Grans % 0.2 %; Lymphocytes % 26.2 %; MCH 27.7 pg (27.0-33.0); MCHC 32.4 % (32.0-36.0); MCV 86 fL (80-95); MPV 10.2 fL (8.0-11.0); Monocytes % 7.3 %; Neutrophils % 61.9 %; Platelet Count 281 10^3/uL (130-400); RBC 5.02 10^6/uL (4.36-5.78); RDW 13.3 % (11.8-14.1); RDW-SD 41.8 fL; WBC 8.23 10^3/uL (4.4-10.8)
[2024-08-28 10:16] VITALS: BP 122/79; PULSE 77; O2SAT 100
[2024-08-28 10:26] LABS: ALT 36 U/L (16-63); AST 18 U/L (15-37); Albumin 3.5 g/dL (3.4-5.0); Alkaline Phosphatase 141 U/L (46-116); Anion Gap 6.8 mmol/L (3-11); BUN 14 mg/dL (7-18); Bilirubin, Total 0.31 mg/dL (0.2-1.0); CO2 29.2 mmol/L (21.0-32.0); CREATININE 1.1 mg/dL (0.70-1.30); Calcium 8.6 mg/dL (8.5-10.1); Chloride 105 mmol/L (98-107); Estimated GFR 92.61 (mL/min/1.73m2); Glucose 105 mg/dL (74-106); Potassium 3.8 mmol/L (3.5-5.1); Sodium 141 mmol/L (136-145); Total Protein 7.3 g/dL (6.4-8.2)
[2024-08-28 10:31] VITALS: BP 133/84; PULSE 91; O2SAT 95
== END 2024-08-28 10:46 | disposition home or self-care (01) ==
PROVIDERS: Emergency Provider Student in an Organized Health Care Education/Training Program; PCP Family Medicine
DX: R51.9 Headache, unspecified (principal); Z59.10 Inadequate housing, unspecified; Z77.29 Contact with and (suspected) exposure to other hazardous substances
CPT/HCPCS: 80053; 82375; 99283; 85025

== ENCOUNTER 2024-12-25 17:21 | Emergency (ER) | payer MEDICARE, MEDICAID, SELFPAY ==
[2024-12-25 17:23] VITALS: BP 135/72; PULSE 65; RESP 15; TEMP 36.4; O2SAT 97
--- NOTE | 2024-12-25 17:34 | W.ED.GENAD ---
Discharge Plan Disposition Patient Disposition: Home Condition: Stable Discharge Details Clinical Impression: Strain of right biceps muscle Primary Care Provider: Arnie Lovelace ED Provider: Kieran Ramos Home Meds and New Rx's Prescriptions: Continued ibuprofen 200 mg capsule 400 mg PO Q6H PRN (Reason: Headache pain) multivitamin Tablet 1 tab PO QAM calcium carbonate [Tums] 200 mg calcium (500 mg) tablet,chewable 200 mg PO TID PRN fluticasone propionate 50 mcg/actuation spray,suspension 2 spray intranasal DAILY PRN (Reason: congestion) Qty: 16 2RF Rx Instructions: administer into each nostril Discharge Instructions Instructions: Muscle Strain ED Additional Instructions: Seen in the emergency department for the muscle strain of your right biceps after beginning to workout again, this is a normal part of working out you likely have a minor muscle strain. Please take Tylenol and ibuprofen, ice the area and stretch the area. Please use urgent care or other nonemergent services for complaints like these in the future. Please return to the emergency department for trauma, suspected broken bones, chest pain, respiratory distress, intractable nausea or vomiting or other emergency concerns. Referrals: Arnie Lovelace DO [Primary Care Provider] - Discharge Data Discharge Date/Time-TO BE ENTERED AT DEPARTURE: 12/25/24 18:01 HPI General Date/Time Provider Initiated Documentation: 12/25/24 17:34. HPI Narrative: 29 year-old male presents to ED today by POV/ambulating with his mother with a chief complaint of arm soreness after recently starting working out, after a sedentary period with onset over the past few days doing 10lb. bicep curls complaining of R bicep pain. Quality described as aching muscle, feels like his muscles are swollen, no radiation to fever, redness, dark urine, fatigue, inability to move his arms, redness, bruising. Severity is described as moderate. Palliating factors include nothing attempted. Provoking factors include working out. Patient not anticoagulated. Related Data Home Medications ?Medication ?Instructions ?Recorded ?Confirmed calcium carbonate (Tums) 200 mg PO TID PRN 04/08/23 12/25/24 ibuprofen 200 mg capsule 400 mg PO Q6H PRN Headache pain 04/08/23 12/25/24 multivitamin 1 tab PO QAM 04/08/23 12/25/24 fluticasone propionate 50 2 spray intranasal DAILY PRN 08/21/23 12/25/24 mcg/actuation nasal congestion #16 grams spray,suspension Previous Rx's ?Medication ?Instructions ?Recorded fluticasone propionate 50 2 spray intranasal DAILY PRN 08/21/23 mcg/actuation nasal congestion #16 grams spray,suspension Allergies Allergy/AdvReac Type Severity Reaction Status Date / Time cat dander Allergy Intermediate itching/eye Verified 12/25/24 17:29 s/nose pollen extracts Allergy Intermediate Nasal Verified 12/25/24 17:29 congestion; watery, itchy eyes No Known Drug Allergies Allergy Other (See Verified 12/25/24 17:29 Comment) General Stated Complaint: Orthopedic YENIFER: 5 Review of Systems All systems reviewed & are unremarkable except as noted in HPI and below Exam Narrative Exam Narrative: GENERAL APPEARANCE: Well-nourished, non-toxic, awake and alert, atraumatic, no acute distress. SKIN: Warm, pink, dry, intact, without rashes/lesions/ulcerations. HEAD: Normocephalic, atraumatic, normal hair distribution for gender/age. EYES: Normal conjunctiva, no exudates on lids/lashes. ENT: Nares patent, no circumoral cyanosis, no facial swelling NECK: Supple, trachea midline, painless cervical ROM. LUNGS/CHEST: Non-labored respirations, normal A/P diameter, symmetrical expansion, no chest wall deformity HEART (CV/PV): No peripheral edema, no JVD. ABDOMEN: Soft, non-distended, no guarding. MSK: Normal ROM, no swelling/deformity to bilateral UEs or LEs, moving all extremities without weakness, no cyanosis, spine midline without tenderness, normal curvature, tender to palpation in the right biceps insertion at the elbow with no interruption of the biceps tendon, neurovascularly completely intact, right radial pulse 2+ NEURO: Mental Status AAOx4 - alert to person, place, time, events No facial droop, no forehead involvement. Motor: No focal weakness - strength 5/5 in bilateral UEs and LEs, proximal and distal, symmetric. Sensory: sensation intact to light touch globally. Gait normal: patient ambulated without ataxia into ED room. PSYCH: euthymic, cooperative, pleasant, appropriate speech Course Vital Signs Vital signs: Vital Signs Temperature 36.4 C 12/25/24 17:23 Pulse 65 04/26/25 17:23 Respiratory Rate 15 12/25/24 17:23 Blood Pressure 135/72 12/25/24 17:23 Pulse Oximetry 97 12/25/24 17:23 Temperature 36.4 C 12/25/24 17:23 Pulse 65 12/25/24 17:23 Respiratory Rate 15 12/25/24 17:23 Blood Pressure 135/72 12/25/24 17:23 Pulse Oximetry 97 12/25/24 17:23 Pain Level 8 12/25/24 17:23 Medical Decision Making This dictation utilizes [id number] dictation software and may contain unedited grammatical errors. 29 year-old male presents to ED today by POV/ambulating with his mother with a chief complaint of arm soreness after recently starting working out, after a sedentary period with onset over the past few days doing 10lb. bicep curls complaining of R bicep pain. Quality described as aching muscle, feels like his muscles are swollen, no radiation to fever, redness, dark urine, fatigue, inability to move his arms, redness, bruising. Severity is described as moderate. Palliating factors include nothing attempted. Provoking factors include working out. Patients' medical history: [ ]. Family and social history: [ ]. Pertinent exam findings / vital signs include mild tenderness in R bicep, no swelling, no bruising, bicep tendon intact, NV intact distally. Differential / pathologies of concern include muscle soreness, not rhabdo, not tendon rupture. Diagnostic studies of: -None. Interventions of: -None. ED Course/Assessment/Plan: 29-year-old male recently started working out doing 10 pound dumbbell curls and has pain in both biceps for couple days afterwards as he suspected that he overdid it and has some muscle strains, I do not suspect any emergent pathology and assured him that it is normal and he needs to take Tylenol and ibuprofen and perform gentle stretching exercises, strict return criteria for any fatigue, dark urine, profound weakness. Findings not consistent with rhabdomyolysis, tendon rupture. Disposition of strain of right biceps muscle. Patient verbalized understanding of the plan and return to ED criteria and engaged in shared decision making. Medical Records Medical records reviewed: Yes I reviewed the patient's medical records. Quality:SDOH Health Related Social Needs: Health related social needs housing instability, housed, with risk of homelessness (Z59.811), food insecurity (Z59.41), problems related to housing/economic circumstances (Z59.89) Health related social needs details Noted PFSH All Active Problems (Updated 12/25/24 @ 17:46 by ROBEL Dietz) Strain of right biceps muscle (Acute) Chronic sinusitis (Acute) Asthma (Chronic) Obesity (Chronic) Cold sore (Acute) resolving, uses chapstick .. prob HSV (may need viral/top in future) Nasal ulcer (Acute) Reversed sleep wake cycle (Acute) Body mass index (BMI) of greater than 35 to 39.9 with comorbidity (Chronic) Asperger's syndrome (Acute 10/26/14) Restrictive lung disease secondary to obesity (Chronic) PFT 10/2021 Bilateral edema of lower extremity (Acute) Disrupted sleep-wake cycle (Acute) Oppositional defiant disorder (Acute 12/30/11) Hair loss (Acute) Gynecomastia (Acute 11/08/14) Acanthosis nigricans (Acute 11/08/14) Medical History Sqhev-Pegrhletp-Kvwjl (WPW) pattern (93) Depression (12/30/11) Intentional Tylenol overdose 2014 BMI 40.0-44.9, adult (10/08/16) Surgical History 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 Family History Mother Essential hypertension Asthma Diabetes Aunt Diabetes Heart disease Asthma Aunt Asthma Maternal Grandmother Heart disease Social History (Updated 12/20/24 @ 15:46 by Bianka Blackwell) Smoking/Tobacco Use Status: Never Second Hand Exposure: No Smoking risk assessment performed?: Yes Alcohol Intake: current Drug use: Never Substance use type: does not use Adopted: No Caregiver/Support person: No Foster care: No Household members: family Housing: apartment Number of Children: 0 number of grandchildren: 0 Communication Needs: None Education Level: high school Do you need help understanding health information?: Rarely current occupation: Disabled Pets and animals: Yes (1) Pets and animals: cat(s) Sexually active: No Do you think of yourself as: straight/heterosexual Current gender identity: male What is your relationship status?: never How often do you talk on the phone with friends or family?: three or more times per week How often do you get together with friends or relatives?: three or more times per week How often do you attend hindu or anabaptism services?: decline to answer Do you belong to any clubs or organized social groups?: no Panel score (0-1 are the most socially isolated patients): 1 What type of physical activity do you participate in: none and walking Duration: < 15 minutes/day Frequency: 1-2 times per week Judy/Presybeterian: None Special judy needs: No Seatbelt use: always Helmet use: No (Never) Drive intox or ride w/intox driver's education instructor: No (Not to my knowledge) Do you feel safe at home: Yes Do you feel safe in your relationship?: Yes Victim of physical abuse: No Victim of emotional abuse: No Victim of sexual abuse: No Would you like helpful sources: No
== END 2024-12-25 18:01 | disposition home or self-care (01) ==
LOC: ER 17:57
PROVIDERS: Emergency Provider Physician Assistant; PCP Family Medicine
DX: S46.211A Strain of muscle, fascia and tendon of other parts of biceps, right arm, initial encounter (principal); X50.9XXA Other and unspecified overexertion or strenuous movements or postures, initial encounter; Y93.89 Activity, other specified
CPT/HCPCS: 99283